=== PATIENT | female | born 1995 | race Caucasian/White ===

== ENCOUNTER 2016-09-14 23:24 | Inpatient (IN) | payer OTHER ==
[2016-09-15 00:51] LABS: Comments Flag Yes; Hematocrit 35 % (35-47); Hemoglobin 11.2 g/dl (12.0-16.0); Mean Corpuscular HGB Conc 32 g/dl (31-36); Mean Corpuscular Hemoglobin 24 pg (27-31); Mean Corpuscular Volume 75 fL (80-97); Red Blood Count 4.68 10^6/ul (4.0-5.4); Red Cell Distribution Width 17 % (10.5-15)
[2016-09-15] MEDS ORDERED: fentaNYL* 50 MCG/ML 2 ML VIAL (100 MCG VIAL) ONE (01:08)
[2016-09-15 01:14] LABS: White Blood Count 14.1 10^3/ul (3.5-10.8)
[2016-09-15] MEDS ORDERED: Sodium Citrate/Citric Acid* 15 ML UDC PO PRN (01:21)
[2016-09-15] MEDS ORDERED: Phenylephrine IV* 40 MCG/ML 10 ML SYRINGE IV PUSH PRN (01:21)
[2016-09-15] MEDS ORDERED: Famotidine TAB* 20 MG PO PRN (01:21)
[2016-09-15] MEDS ORDERED: Penicillin G Potassium IV* 5,000,000 UNITS in NS 0.9% 100 ML* 100 ML IVPB ONE (01:30)
[2016-09-15] MEDS ORDERED: OBEPIDURAL* 250 ML EPIDURAL SCH (02:00)
[2016-09-15] MEDS: EPHEDrine (Pressors)* 50 MG/ML VIAL IV PUSH PRN ×2 (02:18→02:27)
[2016-09-15] MEDS ORDERED: Oxytocin in LR* 20 UNITS/1,000 ML BAG IVPB ONE (03:15)
[2016-09-15] MEDS ORDERED: Witch Hazel PAD* JAR TOPICAL PRN (03:20)
[2016-09-15] MEDS ORDERED: Acetaminophen TAB* 325 MG PO PRN (03:20)
[2016-09-15] MEDS ORDERED: Dibucaine 1% 28.35 GM TUBE PR PRN (03:20)
[2016-09-15] MEDS ORDERED: Glycerin ADULT SUPP PR PRN (03:20)
[2016-09-15] MEDS ORDERED: Oxytocin in LR* 20 UNITS/1,000 ML BAG IVPB SCH (04:00)
[2016-09-15] MEDS: Ibuprofen TAB* 600 MG PO PRN ×4 (04:49→23:55)
[2016-09-15] MEDS ORDERED: Penicillin G Potassium IV* 2,500,000 UNITS in NS 0.9% 100 ML* 100 ML IVPB SCH (05:30)
[2016-09-15] MEDS ORDERED: Simethicone TAB* 80 MG TAB.CHEW PO SCH (08:30)
[2016-09-15] MEDS: Docusate CAP* 100 MG PO SCH ×3 (08:50→20:25)
[2016-09-15] MEDS ORDERED: Varicella Virus Vaccine Live* 0.5 ML VIAL SUBCUT ONE (09:00)
[2016-09-16 06:55] LABS: Hematocrit 30 % (35-47); Hemoglobin 9.7 g/dl (12.0-16.0); Mean Corpuscular HGB Conc 32 g/dl (31-36); Mean Corpuscular Hemoglobin 25 pg (27-31); Mean Corpuscular Volume 76 fL (80-97); Mean Platelet Volume 8 um3 (7.4-10.4); Red Blood Count 3.95 10^6/ul (4.0-5.4); Red Cell Distribution Width 17 % (10.5-15); White Blood Count 10.5 10^3/ul (3.5-10.8)
[2016-09-16] MEDS: Docusate CAP* 100 MG PO SCH ×3 (07:31→21:14)
[2016-09-16] MEDS: Ibuprofen TAB* 600 MG PO PRN ×3 (07:31→22:25)
[2016-09-16] MEDS: Ferrous Gluconate TAB* 324 MG TAB PO SCH ×2 (07:31→21:14)
[2016-09-17] MEDS: Docusate CAP* 100 MG PO SCH (08:14)
[2016-09-17] MEDS: Ibuprofen TAB* 600 MG PO PRN (08:14)
[2016-09-17] MEDS: Ferrous Gluconate TAB* 324 MG TAB PO SCH (08:14)
[2016-09-17 08:25] VITALS: BP 115/71
== END 2016-09-17 13:42 | disposition home or self-care (01) | DRG 560 ==
LOC: MCHOBOUT 23:24 → MCHOB 09-15 00:02
PROVIDERS: ADMIT Obstetrics & Gynecology; ATTEND Obstetrics & Gynecology
PROC: 10E0XZZ Delivery of Products of Conception, External Approach (ICD-10-PCS; principal; 2016-09-15)
PROC: 10907ZC Drainage of Amniotic Fluid, Therapeutic from Products of Conception, Via Natural or Artificial Opening (ICD-10-PCS; 2016-09-15)
PROC: 0HQ9XZZ Repair Perineum Skin, External Approach (ICD-10-PCS; 2016-09-15)
DX: O99.824 Streptococcus B carrier state complicating childbirth (principal); Z88.1 Allergy status to other antibiotic agents; O70.0 First degree perineal laceration during delivery; Z3A.39 39 weeks gestation of pregnancy; Z37.0 Single live birth
CPT/HCPCS: 36415; 85025; 85027; 86850; 86900; 86901; A9270-GY; J2540; J3010

== ENCOUNTER 2016-10-05 17:12 | Emergency (ER) | payer OTHER ==
[2016-10-05] MEDS ORDERED: Albuterol/Ipratropium NEB.SOL* Albuterol 2.5 MG/Ipratropium 0.5 MG 3 ML INH ONE ×2 (18:08→18:54)
[2016-10-05] MEDS ORDERED: Albuterol HFA INHALER* 8 gm MDI INH PRN (21:36)
[2016-10-05] MEDS ORDERED: Albuterol HFA INHALER* 8 gm MDI INH ONE (21:55)
[2016-10-05 22:04] VITALS: BP 99/63
--- NOTE | 2016-10-06 23:30 | ED ---
Vera Andrea Erika, scribed for Mayo Thompson MD on 10/05/16 at 1925 . Respiratory - HPI Summary HPI Summary: Patient is a 21-year-old female presenting to the ED with a CC of difficulty breathing. Patient reports that for the past 1.5 years, she has experienced episodes of chest tightness and wheezing. She states she does not have a diagnosis of asthma, and has been treated with an inhaler. Patient reports that a few days ago, she had the symptoms, but they resolved. They returned today. Patient also reports a non-productive cough. She denies congestion. Patient does not currently have an inhaler. - History of Current Complaint Chief Complaint: EDRespiratoryDistress Stated Complaint: DIFF BREATHING Time Seen by Provider: 10/05/16 17:58 Hx Obtained From: Patient Onset/Duration: Gradual Onset, Lasting Hours, Still Present Timing: Constant Current Severity: Moderate Pain Intensity: 0 Character: Wheezing, Cough (Nonproductive) Sputum Amount: None Aggravating Factor(s): Nothing Alleviating Factor(s): Nothing Associated Signs and Symptoms: SOB, Chest Pain - tightness, Wheezing - Allergy/Home Medications Allergies/Adverse Reactions: Allergies Allergy/AdvReac Type Severity Reaction Status Date / Time Cephalexin [From Keflex] Allergy Rash Verified 09/15/16 01:17 PMH/Surg Hx/FS Hx/Imm Hx Endocrine/Hematology History: Denies: Hx Diabetes Respiratory History: Reports: Other Respiratory Problems/Disorders - difficulty breathing chronic without diagnosis of asthma Infectious Disease History: No Infectious Disease History: Denies: Traveled Outside the [place] in Last 30 Days - Family History Family History: Denies FHx anesthesia reaction - Social History Alcohol Use: None Hx Substance Use: No Substance Use Type: Reports: None Hx Tobacco Use: No Smoking Status (MU): Never Smoked Tobacco Have You Smoked in the Last Year: No Review of Systems Negative: Nasal Discharge Cardiovascular: Other - chest tightness Positive: Shortness Of Breath - with wheezing, Cough All Other Systems Reviewed And Are Negative: Yes Physical Exam Triage Information Reviewed: Yes Vital Signs On Initial Exam: Initial Vitals Temp Pulse Resp BP Pulse Ox 97.3 F 129 28 131/84 95 10/05/16 17:21 10/05/16 17:21 10/05/16 17:21 10/05/16 17:21 10/05/16 17:21 Vital Signs Reviewed: Yes Appearance: Positive: Well-Appearing, No Pain Distress Skin: Positive: Warm, Skin Color Reflects Adequate Perfusion, Dry Head/Face: Positive: Normal Head/Face Inspection Eyes: Positive: Normal ENT: Positive: Normal ENT inspection Neck: Positive: Supple, Nontender Respiratory/Lung Sounds: Positive: Breath Sounds Present, Wheezes - diffuse, Other - E to I ratio increased Cardiovascular: Positive: Tachycardia - at 129 bpm on triage Abdomen Description: Positive: Nontender, Soft Bowel Sounds: Positive: Present Musculoskeletal: Positive: Normal Neurological: Positive: Normal Psychiatric: Positive: Affect/Mood Appropriate Diagnostics - Vital Signs Vital Signs Temp Pulse Resp BP Pulse Ox 10/05/16 17:21 97.3 F 129 28 131/84 95 - Laboratory Lab Statement: Any lab studies that have been ordered have been reviewed, and results considered in the medical decision making process. Re-Evaluation - Re-Evaluation First Eval Re-Evaluation Time: 21:37 Change: Improved Disposition - Course Course Of Treatment: Tammy Perez presented with wheezing. She has had it before and has used a home inhaler but has not been diagnosed with asthma. She has had no URI symtoms. She iimproved with a couple nebs here and I will send her home with an inhaler. - Diagnoses Provider Diagnoses: Bronchospasm Discharge - Discharge Plan Condition: Stable Disposition: HOME Patient Education Materials: Bronchospasm (ED) Referrals: [facility] [place] PHYSICIAN REFERRAL [Outside] Additional Instructions: Please find a PCP using the Physician Referral Service and follow up with them The documentation as recorded by the Vera matos Erika accurately reflects the service I personally performed and the decisions made by me, Mayo Thompson MD.
== END 2016-10-05 22:05 | disposition home or self-care (01) ==
LOC: ED 17:12
DX: J98.01 Acute bronchospasm (principal); R06.02 Shortness of breath; R07.9 Chest pain, unspecified; R53.1 Weakness
CPT/HCPCS: 94640; 99283; A9270-GY

== ENCOUNTER 2016-10-13 17:08 | Emergency (ER) | payer OTHER ==
[2016-10-13] MEDS ORDERED: Albuterol 2.5 MG/3 ML NEB.SOL* (0.083%) INH ONE (17:19)
[2016-10-13] MEDS ORDERED: Ipratropium 0.5MG/2.5ML NEB* 0.5 MG/2.5 ML NEB.SOLN INH ONE (17:20)
[2016-10-13 17:23] VITALS: BP 133/82
--- NOTE | 2016-10-13 17:43 | UC ---
Respiratory Complaint HPI - HPI Summary HPI Summary: The patient comes in today for: 1. Shortness of breath: Onset: 1-2 weeks ago. Palliative/provocative: Exertion makes it worse. And albuterol inhaler helped along with the DuoNeb she got here and in the ER before. Taking deep breaths makes it worse also. Quality: Wheezing. Region: Lungs. Severity: 8/10 for dyspnea before DuoNeb treatment. AFter DuoNeb treatment: 4/ 10 Time: Constant. Associated symptoms: Fevers: None. Cough: None. Chest pain: Present, retrosternal. Aching. No previous history of chest pain or lung disease. Previous illness: She states she has never had asthma before. However, she went to the ER about 1.5 weeks ago. She was diagnosed as having bronchospasm and treated with two "breathing treatments" and discharged with albuterol inhaler. She also stated that she was sick over the summer with a cold and given an antibiotic and an inhaler. She gave 4 weeks ago. She denies any calf pain. * - History of Current Complaint Chief Complaint: UCRespiratory Stated Complaint: DIFFICULTY BREATHING,COUGH Time Seen by Provider: 10/13/16 17:19 Hx Obtained From: Patient Hx Last Menstrual Period: Gave 4 weeks ago ?: No - Allergies/Home Medications Allergies/Adverse Reactions: Allergies Allergy/AdvReac Type Severity Reaction Status Date / Time Cephalexin [From Keflex] Allergy Rash Verified 10/13/16 17:16 PMH/Surg Hx/FS Hx/Imm Hx Endocrine History Of: Denies: Diabetes, Thyroid Disease, Hyperthyroidism, Hypothyroidism, Dyslipidemia Cardiovascular History Of: Denies: Cardiac Disorders, Hypertension, Pacemaker/ICD, Myocardial Infarction , Congestive Heart Failure, Atrial Fibrillation, Deep Vein Thrombosis, Bleeding Disorders Respiratory History Of: Denies: COPD, Asthma, Bronchitis, Pneumonia, Pulmonary Embolism GI/ History Of: Denies: Gastroesophageal Reflux, Ulcer, Gastrointestinal Bleed, Gall Bladder Disease, Kidney Stones, Diverticulitis, Renal Disease, Urosepsis Neurological History Of: Denies: TIA, CVA, Dementia, Seizures, Migraine Psychological History Of: Denies: Anxiety, Depression, Bipolar Disorder, Schizophrenia, Post Traumatic Stress Disorder Cancer History Of: Denies: Lung Cancer, Colorectal Cancer, Breast Cancer, Prostate Cancer, Cervical Cancer Other History Of: Negative For: HIV, Hepatitis B, Hepatitis C, Anticoagulant Therapy - Surgical History Surgical History: None - Family History Known Family History: Negative: Cardiac Disease, Hypertension, Diabetes Family History: Denies FHx anesthesia reaction - Social History Occupation: Unemployed Alcohol Use: None Substance Use Type: None Smoking Status (MU): Never Smoked Tobacco Have You Smoked in the Last Year: No Household Exposure Type: Cigarettes - Immunization History Most Recent Influenza Vaccination: 06/29/2016 Most Recent Tetanus Shot: 06/29/16 Most Recent Pneumonia Vaccination: n/a Review of Systems Constitutional: Negative Skin: Negative Eyes: Negative ENT: Negative Respiratory: Negative, Shortness Of Breath Cardiovascular: Chest Pain Gastrointestinal: Negative Genitourinary: Negative All Other Systems Reviewed And Are Negative: Yes Physical Exam Triage Information Reviewed: Yes Appearance: Well-Appearing, No Pain Distress, Well-Nourished Vital Signs: Initial Vital Signs Temp 97.5 F 10/13/16 17:17 Pulse 135 10/13/16 17:17 Resp 25 10/13/16 17:17 BP 133/82 10/13/16 17: Pulse Ox 88 10/13/16 17:17 Vital Signs Reviewed: Yes Eyes: Positive: Conjunctiva Clear. Negative: Discharge ENT: Positive: Hearing grossly normal. Negative: Pharyngeal erythema, Nasal congestion, Nasal drainage, TM bulging, TM dull, TM red, Tonsillar swelling, Tonsillar exudate Dental: Negative: Gross Decay/Caries @, Dental Fracture @ Neck: Positive: Supple, Nontender, No Lymphadenopathy. Negative: Nuchal Rigidity Respiratory: Positive: Chest non-tender, No respiratory distress, No accessory muscle use, Wheezing - There was some improvement in the wheezing after the DuoNeb treatment., Other: - No egophony. Cardiovascular: Positive: RRR, No Murmur Abdomen Description: Positive: Nontender, No Organomegaly, Soft. Negative: Distended, Guarding Musculoskeletal: Positive: Strength Intact, ROM Intact, No Edema Neurological: Positive: Alert, Muscle Tone Normal Psychological: Positive: Age Appropriate Behavior, Consolable Skin: Negative: rashes, breakdown UC Diagnostic Evaluation - Laboratory O2 Sat by Pulse Oximetry: 88 Diagnostic Studies Comment: CXR: No acute changes seen. - Radiology Xray Interpretation: No Acute Changes Radiology Interpretation Completed By: Radiologist Respiratory Course/Dx - Course Course Of Treatment: The patient's vitals were initially: Pulse ox: 88%. Heart rate: 135. RR: 25. After DuoNeb treatment: Pulse ox: 92%. Heart rate: 130's. RR: 20. Second vitals after DuoNeb: Pulse ox: 90%. Heart rate 123. RR: 18. Prior to discharge: Pulse ox: 91%. Heart rate: 120. RR: 20. The patient was told that I am concerned about her complaint of chest pain and in light of her abnormal vitals told her that she could have a pulmonary embolism ( she is 4 weeks post ) and this could result in her . She was told that my formal recommendation was to go to the ER. However, she did not want to do this and only agreed to more aggressive asthma treatment. - Differential Dx/Diagnosis Differential Diagnosis/HQI/PQRI: Asthma, Pulmonary Embolism, Other - chest wall pain. Provider Diagnoses: Chest pain. Shortness of breath. Bronchospasm Discharge - Discharge Plan Condition: Stable Disposition: HOME Patient Education Materials: Bronchospasm (ED) Referrals: Non Staff,Doctor [Primary Care Provider] - As Soon As Possible (If you are not going to the ER for evaluation of your chest pain, please see your primary care provider as soon as you can. If you get worse, please re-consider being seen by the ER.) Additional Instructions: Diagnosis (also) chest pain:
--- NOTE | 2016-10-13 18:26 | RAD ---
INDICATION: Short of breath. Cough. COMPARISON: None TECHNIQUE: PA and lateral dual-energy views were obtained. FINDINGS: Bones/Soft Tissues: There are no acute bony findings. There is a mild pectus excavatum deformity Cardiomediastinal: The cardiomediastinal silhouette is normal. Lungs: There are no infiltrates. Pleura: There are no pleural effusions. Other: None IMPRESSION: NO ACTIVE DISEASE.
[2016-10-13] MEDS ORDERED: methylPREDNISolone 125 MG* 2 ML VIAL IM ONE (18:47)
[2016-10-13] MEDS ORDERED: Albuterol HFA INHALER* 8 gm MDI INH ONE (18:56)
== END 2016-10-13 19:25 | disposition left against medical advice (07) ==
LOC: UCEAST 17:08
DX: R07.89 Other chest pain (principal); R06.02 Shortness of breath; J98.01 Acute bronchospasm; Z88.1 Allergy status to other antibiotic agents; Z77.22 Contact with and (suspected) exposure to environmental tobacco smoke (acute) (chronic)
CPT/HCPCS: 71020; 96372; 99213; A9270-GY; G0463; J2930; J7644

== ENCOUNTER 2017-05-15 15:12 | Emergency (ER) | payer OTHER ==
[2017-05-15 15:25] VITALS: BP 103/73
[2017-05-15] MEDS ORDERED: Albuterol 2.5 MG/3 ML NEB.SOL* (0.083%) INH ONE (15:27)
--- NOTE | 2017-05-15 15:27 | UC ---
Throat Pain/Nasal Dino HPI - HPI Summary HPI Summary: 21 YEAR OLD FEMALE PRESENTS WITH COMPLAINS OF WHEEZING. - History of Current Complaint Chief Complaint: UCRespiratory Stated Complaint: CHEST CONGESTION Time Seen by Provider: 05/15/17 15:25 Hx Obtained From: Patient Hx Last Menstrual Period: 05/12/17 Onset/Duration: Sudden Onset Severity: Moderate Pain Scale Used: 0-10 Numeric - 5 Cough: Nonproductive Associated Signs & Symptoms: Positive: Wheezing - Allergies/Home Medications Allergies/Adverse Reactions: Allergies Allergy/AdvReac Type Severity Reaction Status Date / Time Cephalexin [From Keflex] Allergy Rash Verified 05/15/17 15:24 PMH/Surg Hx/FS Hx/Imm Hx Previously Healthy: Yes Other History Of: Negative For: HIV, Hepatitis B, Hepatitis C, Anticoagulant Therapy - Surgical History Surgical History: None - Family History Known Family History: Negative: Cardiac Disease, Hypertension, Diabetes Family History: Denies FHx anesthesia reaction - Social History Alcohol Use: None Substance Use Type: None Smoking Status (MU): Never Smoked Tobacco Have You Smoked in the Last Year: No Household Exposure Type: Cigarettes - Immunization History Most Recent Influenza Vaccination: 06/29/2016 Most Recent Tetanus Shot: 06/29/16 Most Recent Pneumonia Vaccination: n/a Review of Systems Constitutional: Negative Skin: Negative Eyes: Negative ENT: Negative Respiratory: Other - WHEEZING Cardiovascular: Negative Gastrointestinal: Negative Genitourinary: Negative Motor: Negative Neurovascular: Negative Musculoskeletal: Negative Neurological: Negative Psychological: Negative All Other Systems Reviewed And Are Negative: Yes Physical Exam Triage Information Reviewed: Yes Appearance: Well-Appearing Vital Signs: Initial Vital Signs Temp 36.7 C 05/15/17 15:20 Pulse 118 05/15/17 15:20 Resp 16 05/15/17 15:20 BP 103/73 05/15/17 15:20 Pulse Ox 96 05/15/17 15:20 Eye Exam: Normal ENT Exam: Normal Dental Exam: Normal Neck exam: Normal Neck: Positive: 1 Respiratory: Positive: Respiratory distress Cardiovascular Exam: Normal Abdominal Exam: Normal Musculoskeletal Exam: Normal Neurological Exam: Normal Psychological Exam: Normal Skin Exam: Normal Throat Pain/Nasal Course/Dx - Differential Dx/Diagnosis Provider Diagnoses: ASTHMA. WHEEZING. COUGH Discharge - Discharge Plan Condition: Stable Disposition: HOME Prescriptions: Albuterol HFA INHALER* [Ventolin HFA Inhaler*] 1 puff INH Q6H PRN #1 mdi PRN Reason: Wheezing Azithromyxin GISELA (NF) [Z-Gisela (Zithromax) 250 mg tabs #6] 2 tab PO .TODAY, THEN 1 DAILY #6 tab Methylprednisolone [Medrol Dosepak 4 MG*] 4 mg PO .SEE GISELA INSTRUCTION #21 tab Patient Education Materials: Reactive Airways Disease (ED), Wheezing (ED) Referrals: No Primary Care Phys,NOPCP [Primary Care Provider] -
[2017-05-15] MEDS ORDERED: predniSONE TAB* 20 MG PO ONE (15:28)
== END 2017-05-15 15:56 | disposition home or self-care (01) ==
LOC: UCEAST 15:12
DX: J45.909 Unspecified asthma, uncomplicated (principal); Z88.1 Allergy status to other antibiotic agents; Z77.22 Contact with and (suspected) exposure to environmental tobacco smoke (acute) (chronic)
CPT/HCPCS: 99212; G0463; J7512

== ENCOUNTER → 2017-11-01 21:42 | Emergency (ER) | payer OTHER ==
[~2017-11-01 21:42] MED LIST: Albuterol/Ipratropium NEB.SOL* Albuterol 2.5 MG/Ipratropium 0.5 MG 3 ML INH ONE; predniSONE TAB* 20 MG PO ONE
[2017-11-01 21:52] VITALS: BP 100/68
--- NOTE | 2017-11-01 22:35 | UC ---
Respiratory Complaint HPI - HPI Summary HPI Summary: 22 y/o female presents to the urgent care c/o SOB w/ wheezing for the past 3 days. Pt reports since she was w/ her daughter about 1 year ago she is been having multiple episodes of wheezing. She has an appt w/ [facility] on for further evaluation. She has been taking several time Prednisone which is the only medication that has helped to alleviate wheezing. Pt denies fever, cough, nasal congestion, abdominal pain, chest pain, N/V/D. She run out of albuterol inhaler. - History of Current Complaint Chief Complaint: UCRespiratory Stated Complaint: DIFFICULTY BREATHING Time Seen by Provider: 11/01/17 22:34 Hx Obtained From: Patient Hx Last Menstrual Period: 10/24/17 Onset/Duration: Gradual Onset, Lasting Days - 3 days, Still Present, Worse Since Timing: Constant Severity Initially: Mild Severity Currently: Mild Pain Intensity: 3 - mild upper back pain Pain Scale Used: 0-10 Numeric Aggravating Factors: Deep Breaths, Recumbent Position, Other - wheezing Alleviating Factors: Bronchodilator - she run out it yesterday Associated Signs And Symptoms: Positive: Wheezing. Negative: Fever, Chills, Pleuritic Chest Pain - Risk Factors Pulmonary Embolism Risk Factors: Negative Cardiac Risk Factors: Negative Pseudomonas Risk Factors: Negative Tuberculosis Risk Factors: Negative - Allergies/Home Medications Allergies/Adverse Reactions: Allergies Allergy/AdvReac Type Severity Reaction Status Date / Time cephalexin Allergy Rash Verified 11/01/17 21:52 PMH/Surg Hx/FS Hx/Imm Hx Previously Healthy: Yes - Pt denies PMHX Other History Of: Negative For: HIV, Hepatitis B, Hepatitis C, Anticoagulant Therapy - Surgical History Surgical History: None - Family History Known Family History: Positive: None - Pt denies FMHX Negative: Cardiac Disease, Hypertension, Diabetes Family History: Denies FHx anesthesia reaction - Social History Occupation: Employed Full-time Lives: With Family Alcohol Use: None Substance Use Type: None Smoking Status (MU): Never Smoked Tobacco Have You Smoked in the Last Year: No Household Exposure Type: Cigarettes - Immunization History Most Recent Influenza Vaccination: 06/29/2016 Most Recent Tetanus Shot: 06/29/16 Most Recent Pneumonia Vaccination: n/a Review of Systems Constitutional: Negative Skin: Negative Eyes: Negative ENT: Negative Respiratory: Shortness Of Breath, Other - wheezing Cardiovascular: Negative Gastrointestinal: Negative Genitourinary: Negative Motor: Negative Neurovascular: Negative Musculoskeletal: Other: - mild upper back pain due to wheezing Neurological: Negative Psychological: Negative Is Patient Immunocompromised?: No All Other Systems Reviewed And Are Negative: Yes Physical Exam - Summary Physical Exam Summary: Vital Signs Reviewed: Yes General: well developed, well nourished female sitting in the examining table w/ o any apparent distress Eyes: Positive: Conjunctiva Clear - PERRLA, EOMI, fundi grossly normal ENT: Positive: Normal ENT inspection, Hearing grossly normal, Pharynx normal, Nose; clear, TMs normal. Negative: Tonsillar swelling, Tonsillar exudate Neck: Positive: Supple, Nontender, No Lymphadenopathy Respiratory: no orthopnea or dyspnea. Able to speak in full sentences, no retractions or accessory muscle use, no tripod position, stridor, or head bobbing. Positive breath sound, Bilaterally lungs w/ scattered wheezing , crackles, rhonchi, rales. Cardiovascular: Positive: RRR, No Murmur, Pulses Normal, Brisk Capillary Refill Abdomen Description: Positive: Nontender, No Organomegaly, Soft. Negative: CVA Tenderness (R), CVA Tenderness (L) Bowel Sounds: Positive: Present Musculoskeletal Exam: Normal Musculoskeletal: Positive: Strength Intact, ROM Intact, No Edema Neurological Exam: Normal Psychological Exam: Normal Skin Exam: Normal Triage Information Reviewed: Yes Vital Signs: Initial Vital Signs Temp 97.1 F 11/01/17 21:48 Pulse 92 11/01/17 21:48 Resp 16 11/01/17 21:48 BP 100/68 11/01/17 21:48 Pulse Ox 97 11/01/17 21:48 Diagnostic Evaluation - Laboratory O2 Sat by Pulse Oximetry: 97 Respiratory Course/Dx - Course Course Of Treatment: 22 y/o female presents to the urgent care c/o SOB w/ wheezing for the past 3 days. Pt reports since she was w/ her daughter about 1 year ago she is been having multiple episodes of wheezing. She has an appt w/ [facility] on 11/20/2017 for further evaluation. She has been taking several time Prednisone which is the only medication that has helped to alleviate wheezing. Pt denies fever, cough, nasal congestion, abdominal pain, chest pain, N/V/D. She run out of albuterol inhaler. Hx obtained. Pt w/ B/L scattered lung wheezing on examiantion, O2sat:97%. Pt w/ a reactive airway may be due to allegens or cold and Hx of mulptiple episodes of wheezing in the past year. Pt given Prednisone PO and Duoneb at the clinic. Patient tolerated well treatment and lungs improved, mild wheezing only in posterior RT lung. Pt felt better. Patient prescribed Prednisone taper dose, Albuterol inhaler and Rx a nebulizer machine to continue Neb Tx's as directed below. The patient was recommended to increase fluid intake. Take medications as recommended and patient advised to continue w/ albuterol treatments TID. Patient recommended to to f/u w/ her [facility] [employer] appt on 11/20/2017 for further management on her reactive airway. D/C instructions explained. Pt left the clinic hemodynamically stable, A&OX3. Patient understood and agree. - Differential Dx/Diagnosis Differential Diagnosis/HQI/PQRI: Asthma, Bronchitis, Laryngitis, Sinusitis, Other - wheezing Provider Diagnoses: 1- Acute wheezing. 2- Reactive airway. 3-Bronchospasm Discharge - Discharge Plan Condition: Stable Disposition: HOME Prescriptions: Albuterol 2.5MG/3ML (0.083%)* [Ventolin 2.5 MG/3 ML NEB.KRISH*] 2.5 mg INH Q6H #1 box Albuterol HFA INHALER* [Ventolin HFA Inhaler*] 1 puff INH Q6H PRN #1 mdi PRN Reason: Wheezing predniSONE TAB* [Deltasone TAB*] 20 mg PO DAILY #8 tab Patient Education Materials: Asthma (ED), Wheezing (ED) Forms: *Work Release Referrals: Socrates Room MD [Primary Care Provider] - 3 Days Additional Instructions: 1-Take Prednisone PO as directed starting tomorrow. Use the albuterol inhaler as directed. 2- If symptoms do not improve or worsen or your develop SOB with fever and severe wheezing please go immediately to the ER further evaluation and treatment. 3- Please F/u with your PCP in 2-3 days for further management since you may be developing Asthma. Keep your appt on 11/20/2017
== END | disposition home or self-care (01) ==
LOC: UCEAST 21:42
DX: J45.901 Unspecified asthma with (acute) exacerbation (principal); M54.6 Pain in thoracic spine; Z88.1 Allergy status to other antibiotic agents
CPT/HCPCS: 99212; A9270-GY; G0463; J7512